=== PATIENT | female | born 1950 | race Caucasian/White ===

== ENCOUNTER → 2023-11-11 | Outpatient (CLI) | payer MEDICARE ==
[~2023-11-11] MED LIST: ATARAX 25MG25 MG/TAB PO; CRESTOR 10MG10 MG PO; Iohexol 300 - 100 ML VIAL IV ONE; NS 100 ML IV SCH; SINGULAIR 110 MG/TAB PO; TESSALON P100 MG/CAP PO; TOFRANIL-PM100 MG PO
== END ==
LOC: COL.RAD 08:40
DX: K80.20 Calculus of gallbladder without cholecystitis without obstruction (principal); K63.89 Other specified diseases of intestine; R31.0 Gross hematuria
CPT/HCPCS: Q9967